=== PATIENT | male | born 1990 | race Two or more races ===

== ENCOUNTER 2023-10-23 09:58 | Emergency (ER) | payer MEDICAID, OTHER ==
[~2023-10-23] VITALS: Ht 254 cm; Wt 85.9 kg
[2023-10-23 11:05] VITALS: BP 143/80; PULSE 90; RESP 16; TEMP 98.4; O2SAT 96
[2023-10-23] MEDS ORDERED: IBUP-1456 PO (11:17)
== END 2023-10-23 11:27 | disposition home or self-care (01) ==
LOC: ER 09:58
DX: S39.012A Strain of muscle, fascia and tendon of lower back, initial encounter (principal); V43.52XA Car driver injured in collision with other type car in traffic accident, initial encounter; Y93.I9 Activity, other involving external motion; Y92.89 Other specified places as the place of occurrence of the external cause; Y99.8 Other external cause status
CPT/HCPCS: 72100